=== PATIENT | female | born 1965 | race Asian ===

== ENCOUNTER 2018-02-05 22:23 | Emergency (ER) | payer OTHER ==
[2018-02-05 23:05] LABS: BASOPHIL % 0.5 % (0-2); PLATELET COUNT 244 x10^3mcL (130-400); RED CELL DISTRIBUTION WIDTH 14.5 % (11.5-14.5)
[2018-02-05 23:13] LABS: CALCIUM 8.6 mg/dL (8.5-10.1); CHLORIDE SERUM 102 mmol/L (98-107); CREATININE SERUM 0.8 mg/dL (0.6-1.0); GFR1 > 60 mL/min; GLUCOSE SERUM 121 mg/dL (74-106); POTASSIUM SERUM 3.7 mmol/L (3.5-5.1); SODIUM SERUM 135 mmol/L (136-145)
[2018-02-05 23:17] LABS: ALBUMIN 3.8 g/dL (3.4-5.0); ALKALINE PHOSPHATASE 77 U/L (46-116); ALT/SGPT 34 U/L (14-59); AMYLASE 88 U/L (25-115); AST/SGOT 19 U/L (15-37); LIPASE 137 IU/L (73-393); TOTAL PROTEIN, SERUM 7.2 g/dL (6.4-8.2)
[2018-02-05 23:59] VITALS: BP 126/76
== END 2018-02-05 23:59 | disposition home or self-care (01) ==
LOC: ED 22:23
PROVIDERS: Specialist
DX: R10.13 Epigastric pain (principal); F17.210 Nicotine dependence, cigarettes, uncomplicated; I10 Essential (primary) hypertension
CPT/HCPCS: 36415; 99406